=== PATIENT | male | born 1955 | race Caucasian/White ===

== ENCOUNTER 2020-08-12 18:39 | Emergency (ER) | payer OTHER | END 2020-08-12 19:15 | disposition left against medical advice (07) | LOC: ER1 18:39 | DX: Z53.21 Procedure and treatment not carried out due to patient leaving prior to being seen by health care provider (principal) | CPT/HCPCS: 93005 ==

== ENCOUNTER 2020-08-17 16:22 | Inpatient (IN) | payer OTHER ==
[~2020-08-17] VITALS: Ht 177.8 cm; Wt 99.3 kg
[2020-08-17 17:17] LABS: HEMOGLOBIN 12.2 gm/dl (14.0-17.5); RED BLOOD COUNT 4.93 M/UL (4.20-5.50); WHITE BLOOD COUNT 5.5 K/UL (4.5-11.0)
[2020-08-17 17:42] LABS: BUN/CREATININE RATIO 21 (0-10)
[2020-08-17] MEDS ORDERED: URSO FORTE500 MG PO (19:44)
[2020-08-17] MEDS ORDERED: POTASSIUM CITR10 MEQ PO (19:45)
[2020-08-17] MEDS ORDERED: ISOSORBIDE MONO60 MG PO (19:46)
[2020-08-17] MEDS ORDERED: ELIQUIS 5 MG TAB5 MG PO (19:46)
[2020-08-17] MEDS ORDERED: FEROSUL325 MG PO (19:46)
[2020-08-17] MEDS ORDERED: LEVOTHYROXINE137 MC1 PO (19:47)
[2020-08-17] MEDS ORDERED: PREDNISONE 5 MG5 MG PO (19:47)
[2020-08-17] MEDS ORDERED: LIPITOR80 MG PO (19:49)
[2020-08-17] MEDS ORDERED: NEURONTIN300 MG PO (19:49)
[2020-08-17] MEDS ORDERED: VITAMIN D350 MC3 PO (19:49)
[2020-08-18 06:05] LABS: HEMOGLOBIN 13.3 gm/dl (14.0-17.5); RED BLOOD COUNT 5.25 M/UL (4.20-5.50)
[2020-08-18 06:11] LABS: WHITE BLOOD COUNT 2.9 K/UL (4.5-11.0)
[2020-08-18 06:37] LABS: BUN/CREATININE RATIO 22 (0-10)
[2020-08-19 06:26] LABS: HEMOGLOBIN 11.9 gm/dl (14.0-17.5); RED BLOOD COUNT 4.75 M/UL (4.20-5.50)
[2020-08-19 06:55] LABS: BUN/CREATININE RATIO 27 (0-10)
[2020-08-20 06:44] LABS: BUN/CREATININE RATIO 33 (0-10)
[2020-08-20] MEDS ORDERED: VENTOLIN HFA 66.7 GM INH (10:25)
[2020-08-20] MEDS ORDERED: PREDNISONE 5 MG5 MG PO (10:25)
[2020-08-20] MEDS ORDERED: LEVOFLOXACIN500 MG PO (10:25)
[2020-08-20] MEDS ORDERED: DECADRON6 MG PO (10:25)
[2020-08-20] MEDS ORDERED: ASPIRIN EC81 MG PO (10:31)
== END 2020-08-20 16:14 | disposition home or self-care (01) | DRG 177 ==
LOC: ER1 16:22 → CDU 19:05 → M/S 19:05
PROVIDERS: Physician Assistant; ADMIT Internal Medicine
PROC: XW13325 Transfusion of Convalescent Plasma (Nonautologous) into Peripheral Vein, Percutaneous Approach, New Technology Group 5 (ICD-10-PCS; 2020-08-17)
PROC: 8E0ZXY6 Isolation (ICD-10-PCS; 2020-08-17)
PROC: XW033E5 Introduction of Remdesivir Anti-infective into Peripheral Vein, Percutaneous Approach, New Technology Group 5 (ICD-10-PCS; principal; 2020-08-18)
DX: U07.1 COVID-19 (principal); J12.82 Pneumonia due to coronavirus disease 2019; J96.01 Acute respiratory failure with hypoxia; I25.10 Atherosclerotic heart disease of native coronary artery without angina pectoris; Z95.1 Presence of aortocoronary bypass graft; E21.3 Hyperparathyroidism, unspecified; I10 Essential (primary) hypertension; D72.819 Decreased white blood cell count, unspecified; Z79.899 Other long term (current) drug therapy
CPT/HCPCS: 36415; 36600; 71045; 71275; 80048; 80053; 82550; 82553; 82803; 83735; 83874; 84484; 85025; 85027; 85379; 85610; 86900; 86901; 86927; 93005; 96374; 96375; 99285; J1100; J1956; J7030; Q9967

== ENCOUNTER → 2021-08-16 | Outpatient (CLI) | payer MEDICARE, OTHER ==
[~2021-08-16] MED LIST: ASPIRIN EC81 MG PO; DECADRON6 MG PO; ELIQUIS 5 MG TAB5 MG PO; FEROSUL325 MG PO; ISOSORBIDE MONO60 MG PO; LEVOFLOXACIN500 MG PO; LEVOTHYROXINE137 MC1 PO; LIPITOR80 MG PO; NEURONTIN300 MG PO; POTASSIUM CITR10 MEQ PO; PREDNISONE 5 MG5 MG PO; URSO FORTE500 MG PO; VENTOLIN HFA 66.7 GM INH; VITAMIN D350 MC3 PO
== END ==
LOC: CT 13:09
DX: R31.0 Gross hematuria (principal); R53.83 Other fatigue; N20.0 Calculus of kidney; K80.20 Calculus of gallbladder without cholecystitis without obstruction
CPT/HCPCS: 36415; 82565; 84520; Q9967